=== PATIENT | female | born 1985 | race African-American/Black ===

== ENCOUNTER 2019-11-14 11:34 | Emergency (ER) | payer MEDICAID, OTHER ==
[~2019-11-14] VITALS: Ht 157.5 cm; Wt 76.9 kg
[~2019-11-14 11:34] MED LIST: ALBU2.5V14 NEB; ALBU2.5V8 IH; CYCL5TAB PO; FLUT1DIS3 IH; HYDR-3165 PO; IBUP800T19 PO
[2019-11-14 11:50] VITALS: BP 119/76
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
== END 2019-11-14 12:10 | disposition home or self-care (01) ==
LOC: ER 11:34
DX: T23.501A Corrosion of first degree of right hand, unspecified site, initial encounter (principal); R60.0 Localized edema; R21 Rash and other nonspecific skin eruption; M79.7 Fibromyalgia; F12.90 Cannabis use, unspecified, uncomplicated; Z98.890 Other specified postprocedural states; T65.891A Toxic effect of other specified substances, accidental (unintentional), initial encounter; Y92.89 Other specified places as the place of occurrence of the external cause
CPT/HCPCS: 99281

== ENCOUNTER 2020-07-15 18:39 | Emergency (ER) | payer MEDICAID ==
[~2020-07-15] VITALS: Ht 157.5 cm; Wt 85.2 kg
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
[2020-07-15] MEDS ORDERED: CYCLOBENZAPRINE 10 MG TABLET. PO ONE (20:00)
[2020-07-15] MEDS ORDERED: KETOROLAC 60 MG/2 ML VIAL. IM ONE (20:00)
[2020-07-15 20:29] VITALS: BP 131/68
[2020-07-15] MEDS ORDERED: CYCL-331 PO (20:57)
== END 2020-07-15 21:04 | disposition home or self-care (01) ==
LOC: ER 18:39
DX: M54.6 Pain in thoracic spine (principal); M54.2 Cervicalgia; M79.7 Fibromyalgia; Z88.0 Allergy status to penicillin
CPT/HCPCS: 81025; 96372; 99283; J1885

== ENCOUNTER → 2020-08-12 | Emergency (ER) | payer MEDICAID ==
[~2020-08-12] VITALS: Ht 157.5 cm; Wt 85.2 kg
[~2020-08-12] MED LIST changes: +ACETAMINOPHEN 325 MG TABLET PO ONE; +CYCL-331 PO; +ONDANSETRON ODT 4 MG TAB.RAPDIS ONE; +ONDANSETRON ODT 4 MG TAB.RAPDIS PO ONE
[2020-08-12 09:41] LABS: BASO % 0 % (0-3); EOS # 0.1 x10^3/uL (0.0-0.7); EOS % 2 % (0-3); HEMATOCRIT 38.7 % (36.0-47.0); HEMOGLOBIN 12.7 g/dL (12.0-15.5); LYMPH # 1.6 x10^3/uL (1.0-4.8); LYMPH % 25 % (24-48); MEAN CORPUSCULAR HEMOGLOBIN 31 pg (25-35); MEAN CORPUSCULAR HGB CONC 33 g/dL (31-37); MEAN CORPUSCULAR VOLUME 95 fL (79-100); MONO # 0.5 x10^3/uL (0.0-1.1); MONO % 8 % (0-9); NEUT # 4.3 x10^3uL (1.8-7.7); NEUT % 65 % (31-73); PLATELET COUNT 167 x10^3/uL (140-400); RED BLOOD COUNT 4.07 x10^6/uL (3.50-5.40); WHITE BLOOD COUNT 6.6 x10^3/uL (4.0-11.0)
[2020-08-12 09:47] LABS: CALCIUM 8.5 mg/dL (8.5-10.1); CREATININE 0.8 mg/dL (0.6-1.0); POTASSIUM 3.9 mmol/L (3.5-5.1)
--- NOTE | 2020-08-12 09:49 | RAD ---
PQRS Compliance Statement: One or more of the following individualized dose reduction techniques were utilized for this examinat ion: 1. Automated exposure control 2. Adjustment of the mA and/or kV according to patient size 3. Use of iterative reconstruction technique CT head and cervical spine without contrast 08/12/2020 9:16 AM INDICATION: Wheezing, seizure COMPARISON: None available TECHNIQUE: Multiple axial CT images of the head were obtained from skull base through the vertex with out intravenous contrast. Multiple axial CT images of the cervical spine were obtained without intrav enous contrast. Coronal and sagittal reformats are provided. FINDINGS: Head: Ventricles, sulci and basal cisterns are within normal limits. There is no hydrocephalus. Gallego-white matter differentiation is normal. There is no acute intracranial hemorrhage. There is no mass, mass e ffect or midline shift. Posterior fossa is normal in appearance. Visualized portions of the orbits are normal. Paranasal sinuses are well aerated. Mastoid air cells a re well aerated. Scalp and calvaria are normal. Cervical spine: Alignment of the cervical spine is normal. Skull base is intact. Craniocervical junction is normal in appearance. Atlantoaxial articulation is normal. Vertebral body heights are maintained without evidence for acute fracture. Facet joints are within normal limits. No significant osseous neural foraminal stenosis. No significa nt osseous spinal canal stenosis. Transverse foramen are intact. There is no prevertebral soft tissue swelling. Thyroid gland is normal in appearance. Visualized port ions of the lung apices are normal without evidence for suspicious pulmonary nodule or infiltrate. IMPRESSION: 1. No acute intracranial hemorrhage. 2. No acute fracture or malalignment of the cervical spine. Electronically signed by: Amy Go MD (08/12/2020 9:47 AM) [id number]
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
--- NOTE | 2020-08-12 09:53 | RAD ---
XR KNEE _3 VIEWS_LT, XR LT TIBIA + FIBULA Clinical Indication: Reason: left knee pain Comparison: None. Findings: There is no acute fracture or dislocation. The tricompartmental joint spaces are maintained. The briscoe lla is in anatomic position. There is no soft tissue abnormality. There is no joint effusion. No acute fracture of the tibia or fibula. No obvious abnormality of the ankle joint. IMPRESSION: No acute fracture of the knee or tibia/fibula. Electronically signed by: Roge Guzman MD (08/12/2020 9:51 AM) [id number]
[2020-08-12 09:58] LABS: ALBUMIN 3.3 g/dL (3.4-5.0); ALBUMIN/GLOBULIN RATIO 0.8 (1.0-1.7); TOTAL BILIRUBIN 0.3 mg/dL (0.2-1.0); TOTAL PROTEIN 7.3 g/dL (6.4-8.2)
[2020-08-12 12:12] LABS: BILIRUBIN,URINE NEG (NEG); CLARITY,URINE HAZY; COLOR,URINE YELLOW; GLUCOSE,URINE NEG (NEG)
[2020-08-12 12:13] LABS: BACTERIA,URINE 0 /HPF (0-FEW); NITRITE,URINE NEG (NEG); SQUAMOUS EPITHELIAL CELL,UR MANY /LPF; UROBILINOGEN,URINE 0.2 mg/dL (0.2 mg/dL)
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
[2020-08-12 12:50] VITALS: BP 116/88
== END ==
LOC: ER 08:23
DX: R56.9 Unspecified convulsions (principal); R07.89 Other chest pain; M25.562 Pain in left knee; M79.7 Fibromyalgia; Z88.0 Allergy status to penicillin; V89.2XXA Person injured in unspecified motor-vehicle accident, traffic, initial encounter; Y93.89 Activity, other specified; Y92.488 Other paved roadways as the place of occurrence of the external cause; Y99.8 Other external cause status
CPT/HCPCS: 36415; 70450; 71045; 72125; 73562; 73590; 80053; 81001; 83690; 84484; 85025; 99285; G0480; Q0162

== ENCOUNTER 2020-09-10 12:35 | Emergency (ER) | payer OTHER, MEDICAID ==
[~2020-09-10] VITALS: Ht 157.5 cm; Wt 85.2 kg
[~2020-09-10 12:35] MED LIST changes: -ACETAMINOPHEN 325 MG TABLET PO ONE; -ONDANSETRON ODT 4 MG TAB.RAPDIS ONE; -ONDANSETRON ODT 4 MG TAB.RAPDIS PO ONE
[2020-09-10 13:17] LABS: BASO % 1 % (0-3); EOS # 0.1 x10^3/uL (0.0-0.7); EOS % 1 % (0-3); HEMATOCRIT 40.5 % (36.0-47.0); HEMOGLOBIN 13.2 g/dL (12.0-15.5); LYMPH # 2.6 x10^3/uL (1.0-4.8); LYMPH % 35 % (24-48); MEAN CORPUSCULAR HEMOGLOBIN 31 pg (25-35); MEAN CORPUSCULAR HGB CONC 33 g/dL (31-37); MEAN CORPUSCULAR VOLUME 96 fL (79-100); MONO # 0.4 x10^3/uL (0.0-1.1); MONO % 6 % (0-9); NEUT # 4.2 x10^3uL (1.8-7.7); NEUT % 57 % (31-73); PLATELET COUNT 200 x10^3/uL (140-400); RED BLOOD COUNT 4.23 x10^6/uL (3.50-5.40); RED CELL DISTRIBUTION WIDTH 13.4 % (11.5-14.5); WHITE BLOOD COUNT 7.3 x10^3/uL (4.0-11.0)
[2020-09-10 13:23] LABS: CALCIUM 9.1 mg/dL (8.5-10.1); CREATININE 0.9 mg/dL (0.6-1.0); GFR 87.3; POTASSIUM 3.6 mmol/L (3.5-5.1)
[2020-09-10 13:29] LABS: MAGNESIUM 2.1 mg/dL (1.8-2.4); TOTAL BILIRUBIN 0.5 mg/dL (0.2-1.0); TOTAL PROTEIN 8.2 g/dL (6.4-8.2)
--- NOTE | 2020-09-10 13:52 | EKG ---
[address] [address] Test Date: 2020-09-10 Test Time: 12:46:48 Pat Name: ANUSHA LYLES Department: Room: Gender: F Dining Room Coordinator: MARIA ESTHER : 1985 Requested By: DAMI MORALES Order Number: [id number] Reading MD: Measurements Intervals [place] Rate: 63 P: 49 MA: 170 QRS: 13 QRSD: 68 T: 12 QT: 386 QTc: 398 Interpretive Statements SINUS RHYTHM NORMAL ECG RI6.02 No previous ECG available for comparison
[2020-09-10] MEDS ORDERED: ACETAMINOPHEN 500 MG TABLET PO ONE (14:15)
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
[2020-09-10 15:24] VITALS: BP 132/87
== END 2020-09-10 15:24 | disposition home or self-care (01) ==
LOC: ER 12:35
DX: G40.909 Epilepsy, unspecified, not intractable, without status epilepticus (principal); R41.0 Disorientation, unspecified; M79.7 Fibromyalgia; F12.90 Cannabis use, unspecified, uncomplicated; Z98.890 Other specified postprocedural states; Z88.0 Allergy status to penicillin
CPT/HCPCS: 36415; 80053; 83735; 84484; 85025; 85379; 93005; 99284; G0480

== ENCOUNTER 2020-11-27 16:25 | Emergency (ER) | payer MEDICAID, OTHER ==
[~2020-11-27] VITALS: Ht 157.5 cm; Wt 85.2 kg
--- NOTE | 2020-11-27 17:36 | EKG ---
[address] [address] Test Date: 2020-11-27 Test Time: 16:36:41 Pat Name: ANUSHA LYLES Department: Room: Gender: F Ben Day Artist: MARIA ESTHER : 1985 Requested By: DAMI MORALES Order Number: [id number] Reading MD: Measurements Intervals [place] Rate: 66 P: 29 PA: 160 QRS: 4 QRSD: 70 T: 8 QT: 372 QTc: 392 Interpretive Statements SINUS RHYTHM OTHERWISE NORMAL ECG RI6.02 No previous ECG available for comparison
[2020-11-27] MEDS ORDERED: IV NORMAL SALINE 1,000ML 1,000 ML IV ONE (17:45)
[2020-11-27] MEDS ORDERED: KETOROLAC 15 MG/ML VIAL. IVP ONE (17:45)
--- NOTE | 2020-11-27 17:46 | PHYS DOC ---
Past History Past Medical History: Fibromyalgia, Seizure Additional Past Medical Histor: severe seasonal allergies (DAMI MORALES MD) Past Surgical History: Other Additional Past Surgical Histo: ACL reapair one year ago (DAMI MORALES MD) Smoking: Non-smoker Alcohol Use: None Drug Use: Marijuana (DAMI MORALES MD) General Adult EDM: Chief Complaint: MULTIPLE COMPLAINTS HPI: HPI: Patient is a 34-year-old female coming in chest correction of her doctor for floaters. Patient states that she last had a seizure yesterday. This morning when she woke up she had floaters in her right eye now complaining of floaters in both eyes that come and go. Patient states that she sometimes has blurred vision and double vision that is horizontal. Has had a right-sided headache that is pressure-like for the past 2 to 3 weeks. Patient states she has been having seizures to 3 times per week. Denies any fevers but states she has had night sweats and occasional chills. Also complaining of a tremor since the seizure yesterday. Patient is being followed by DYLAN Martinez and is taking Zonisamide. Patient seizure disorder developed in the last year. States she has a history of lupus and multiple comorbidities. Denies any history of traumatic brain injury. Had MRI done about 1 month ago and any EEG that were inconclusive for any foci or epilepsy. (DAMI MORALES MD) Review of Systems: Review of Systems: All other systems within normal limits except for as noted in the HPI (DAMI MORALES MD) Allergies: Allergies: Allergies Coded Allergies Type Severity Reaction Last Updated Verified Penicillins Allergy Unknown 08/12/20 Yes (DAMI MORALES MD) Physical Exam: PE: Constitutional: Well developed, well nourished, no acute distress, non-toxic appearance. [] HENT: Normocephalic, atraumatic, bilateral external ears normal, nose normal. [Mild temporal tenderness] Eyes: PERRLA, extraocular was intact, pupils 3 mm reactive conjunctiva normal, no discharge. [] Neck: No rigidity, supple, no stridor. [] Cardiovascular: Regular rate and rhythm, brisk cap refill [] Lungs & Thorax: Non labored symmetric respirations, no tachypnea or respiratory distress [] Abdomen: Soft, nondistended. Skin: Warm, dry, no erythema, no rash. [] Back: Unremarkable Extremities: No deformities, range of motion grossly intact, no lower extremity edema [] Neurologic: Alert and oriented X 3, no focal deficits noted. Cranial nerves intact [] Psychologic: Affect normal, judgement normal, mood normal. [] (DAMI MORALES MD) Current Patient Data: Vital Signs: Vital Signs Date Time Temp Pulse Resp B/P (MAP) Pulse Ox O2 Delivery O2 Flow Rate FiO2 11/27/20 16:25 98.3 59 14 123/59 (80) 100 Room Air (DAMI MORALES MD) EKG: EKG: Sinus rhythm, heart rate 66/min, normal axis, no ST elevation depression, no ectopy. T wave inversions in lead III unchanged from comparison EKG dated 09-10-20 [] (DAMI MORALES MD) Radiology/Procedures: Radiology/Procedures: [] (DAMI MORALES MD) Impressions: EXAMINATION: CT HEAD/BRAIN WO (CT HEAD WITHOUT IV CONTRAST) CLINICAL HISTORY: Seizure, right headache, floaters TECHNIQUE: Serial axial images without IV contrast were obtained from the vertex to the foramen magnum. CT Dose Reduction Employed: One or more of the following individualized dose reduction techniques were utilized for this examination: 1. Automated exposure control 2. Adjustment of the mA and/or kV according to patient size 3. Use of iterative reconstruction technique. COMPARISON: 08/12/2020 FINDINGS: Acute Change: No evidence of an acute infarct or other acute parenchymal process. Hemorrhage: No evidence of acute intracranial hemorrhage. Mass Lesion/Mass Effect: No evidence of intracranial mass or extraaxial fluid collection. No significant mass effect. Chronic Change: None apparent. Parenchyma: No significant volume loss. Parenchyma otherwise within normal limits for age. Ventricles: Ventricles within normal limits for age. Paranasal Sinuses and Skull Base: Visualized paranasal sinuses clear. Visualized skull base and soft tissues unremarkable. Orbits and globes unremarkable. IMPRESSION: No evidence of acute intracranial abnormality or significant interval change. Electronically signed by: Esteban Espinosa DO (11/27/2020 6:05 PM) [facility] DICTATED AND SIGNED BY: ESTEBAN ESPINOSA DO DATE: 11/27/201801 CC: DAMI MORALES MD; KAROLINA MONIQUE PAC ~MTH0 0 (AILYN DIAL DO) Heart Score: C/O Chest Pain: No Risk Factors: Risk Factors: DM, Current or recent (<one month) smoker, HTN, HLP, family history of CAD, obesity. Risk Scores: Score 0 - 3: 2.5% MACE over next 6 weeks - Discharge Home Score 4 - 6: 20.3% MACE over next 6 weeks - Admit for Clinical Observation Score 7 - 10: 72.7% MACE over next 6 weeks - Early Invasive Strategies (DAMI MORALES MD) Course & Med Decision Making: Course & Med Decision Making Pertinent Labs and Imaging studies reviewed. (See chart for details) Pending imaging and labs at shift change, care transitioned at shift change. Pending headache medications. [] (DAMI MORALES MD) Course & Med Decision Making The patient's labs are unremarkable. Her urinalysis has leukocyte esterase but few bacteria. I do not believe this is UTI. Her head CT is negative for acute findings. I spoke with the patient about of her results. She is greatly reassured. She is comfortable with discharge. She is stable for discharge at this time. (AILYN DIAL DO) Dragon Disclaimer: Dragon Disclaimer: This electronic medical record was generated, in whole or in part, using a voice recognition dictation system. (DAMI MORALES MD) Departure Departure: Impression: Primary Impression: Floaters in visual field Additional Impression: History of seizure disorder Disposition: HOME / SELF CARE / HOMELESS Condition: STABLE Referrals: KAROLINA MONIQUE PAC (PCP) Patient Instructions: Eye - Floaters DAMI MORALES MD November 27, 2020 17:46 AILYN DIAL DO November 27, 2020 19:10
[2020-11-27 17:51] LABS: BASO % 0 % (0-3); EOS # 0.1 x10^3/uL (0.0-0.7); EOS % 2 % (0-3); HEMATOCRIT 37.4 % (36.0-47.0); HEMOGLOBIN 12.3 g/dL (12.0-15.5); LYMPH # 2.9 x10^3/uL (1.0-4.8); LYMPH % 39 % (24-48); MEAN CORPUSCULAR HEMOGLOBIN 32 pg (25-35); MEAN CORPUSCULAR HGB CONC 33 g/dL (31-37); MEAN CORPUSCULAR VOLUME 96 fL (79-100); MONO # 0.4 x10^3/uL (0.0-1.1); MONO % 6 % (0-9); NEUT % 53 % (31-73); PLATELET COUNT 160 x10^3/uL (140-400); RED BLOOD COUNT 3.92 x10^6/uL (3.50-5.40); RED CELL DISTRIBUTION WIDTH 13.2 % (11.5-14.5); WHITE BLOOD COUNT 7.4 x10^3/uL (4.0-11.0)
[2020-11-27 17:56] LABS: ANION GAP 9 (6-14); BLOOD UREA NITROGEN 7 mg/dL (7-20); BUN/CREATININE RATIO 9 (6-20); CALCIUM 9.1 mg/dL (8.5-10.1); CARBON DIOXIDE 26 mmol/L (21-32); CHLORIDE 106 mmol/L (98-107); CREATININE 0.8 mg/dL (0.6-1.0); GLUCOSE 92 mg/dL (70-99); POTASSIUM 4.1 mmol/L (3.5-5.1); SODIUM 141 mmol/L (136-145)
[2020-11-27 18:02] LABS: ALBUMIN 3.7 g/dL (3.4-5.0); ALBUMIN/GLOBULIN RATIO 1.1 (1.0-1.7); ALK PHOS 59 U/L (46-116); ALT (SGPT) 16 U/L (14-59); AST (SGOT) 12 U/L (15-37); MAGNESIUM 1.8 mg/dL (1.8-2.4); PHOSPHORUS 3.4 mg/dL (2.6-4.7); TOTAL BILIRUBIN 0.3 mg/dL (0.2-1.0); TOTAL PROTEIN 7.2 g/dL (6.4-8.2)
[2020-11-27 18:04] LABS: C REACTIVE PROTEIN < 0.5 mg/L (0-3.3)
--- NOTE | 2020-11-27 18:07 | RAD ---
EXAMINATION: CT HEAD/BRAIN WO (CT HEAD WITHOUT IV CONTRAST) CLINICAL HISTORY: Seizure, right headache, floaters TECHNIQUE: Serial axial images without IV contrast were obtained from the vertex to the foramen magnu m. CT Dose Reduction Employed: One or more of the following individualized dose reduction techniques wer e utilized for this examination: 1. Automated exposure control 2. Adjustment of the mA and/or kV ac cording to patient size 3. Use of iterative reconstruction technique. COMPARISON: 08/12/2020 FINDINGS: Acute Change: No evidence of an acute infarct or other acute parenchymal process. Hemorrhage: No evidence of acute intracranial hemorrhage. Mass Lesion/Mass Effect: No evidence of intracranial mass or extraaxial fluid collection. No signific ant mass effect. Chronic Change: None apparent. Parenchyma: No significant volume loss. Parenchyma otherwise within normal limits for age. Ventricles: Ventricles within normal limits for age. Paranasal Sinuses and Skull Base: Visualized paranasal sinuses clear. Visualized skull base and soft tissues unremarkable. Orbits and globes unremarkable. IMPRESSION: No evidence of acute intracranial abnormality or significant interval change. Electronically signed by: Esteban Gao DO (11/27/2020 6:05 PM) [facility]
[2020-11-27 18:39] LABS: BACTERIA,URINE FEW /HPF (0-FEW); BILIRUBIN,URINE NEG (NEG); CLARITY,URINE HAZY; COLOR,URINE YELLOW; GLUCOSE,URINE NEG (NEG); NITRITE,URINE NEG (NEG); UROBILINOGEN,URINE 0.2 mg/dL (0.2 mg/dL); WBC,URINE OCC /HPF (0-4)
[2020-11-27 18:40] LABS: SQUAMOUS EPITHELIAL CELL,UR MOD /LPF
[2020-11-27 19:32] VITALS: BP 113/80
== END 2020-11-27 19:45 | disposition home or self-care (01) ==
LOC: ER 16:25
DX: G40.909 Epilepsy, unspecified, not intractable, without status epilepticus (principal); H43.391 Other vitreous opacities, right eye; F12.10 Cannabis abuse, uncomplicated; Z88.0 Allergy status to penicillin
CPT/HCPCS: 36415; 70450; 80053; 81001; 82550; 83605; 83735; 83874; 84100; 85025; 86140; 87086; 93005; 96361; 96374; 99285; J1885; J7030

== ENCOUNTER 2021-02-09 13:51 | Emergency (ER) | payer MEDICAID ==
[~2021-02-09] VITALS: Ht 157.5 cm; Wt 82.0 kg
[2021-02-09 14:56] LABS: BASO % 0 % (0-3); EOS % 0 % (0-3); HEMATOCRIT 35.8 % (36.0-47.0); HEMOGLOBIN 11.9 g/dL (12.0-15.5); LYMPH % 9 % (24-48); MEAN CORPUSCULAR HEMOGLOBIN 31 pg (25-35); MEAN CORPUSCULAR HGB CONC 33 g/dL (31-37); MEAN CORPUSCULAR VOLUME 95 fL (79-100); MONO # 0.8 x10^3/uL (0.0-1.1); MONO % 7 % (0-9); NEUT # 9.5 x10^3uL (1.8-7.7); NEUT % 85 % (31-73); PLATELET COUNT 161 x10^3/uL (140-400); RED BLOOD COUNT 3.78 x10^6/uL (3.50-5.40); RED CELL DISTRIBUTION WIDTH 12.5 % (11.5-14.5); WHITE BLOOD COUNT 11.2 x10^3/uL (4.0-11.0)
[2021-02-09 14:59] LABS: CALCIUM 8.5 mg/dL (8.5-10.1); CREATININE 0.8 mg/dL (0.6-1.0); GFR 99.4
--- NOTE | 2021-02-09 14:59 | EKG ---
[address] [address] Test Date: 2021-02-09 Test Time: 14:51:21 Pat Name: ANUSHA LYLES Department: Room: Gender: F Patient Observation Assistant: : 1985 Requested By: DAMI MORALES Order Number: [id number] Reading MD: Measurements Intervals [place] Rate: 63 P: 27 VA: 140 QRS: 10 QRSD: 60 T: 11 QT: 380 QTc: 392 Interpretive Statements SINUS RHYTHM R-S TRANSITION ZONE IN V LEADS DISPLACED TO THE RIGHT OTHERWISE NORMAL ECG RI6.02 No previous ECG available for comparison
[2021-02-09 15:11] LABS: ALBUMIN 3.6 g/dL (3.4-5.0); ALBUMIN/GLOBULIN RATIO 0.9 (1.0-1.7); MAGNESIUM 2.1 mg/dL (1.8-2.4); TOTAL BILIRUBIN 0.5 mg/dL (0.2-1.0); TOTAL PROTEIN 7.4 g/dL (6.4-8.2)
[2021-02-09 15:44] LABS: PREG TEST PT QUAL NEGATIVE (NEG)
[2021-02-09] MEDS ORDERED: ONDANSETRON PF 4 MG/2 ML VIAL. ONE (15:45)
--- NOTE | 2021-02-09 16:05 | RAD ---
RS Compliance Statement: One or more of the following individualized dose reduction techniques were utilized for this examinat ion: 1. Automated exposure control 2. Adjustment of the mA and/or kV according to patient size 3. Use of iterative reconstruction technique CT head without contrast 02/09/2021 3:53 PM INDICATION: Seizures COMPARISON: 11/27/2020 TECHNIQUE: Multiple axial CT images of the head were obtained from skull base through the vertex with out intravenous contrast. FINDINGS: Head: Ventricles, sulci and basal cisterns are within normal limits. There is no hydrocephalus. Gallego-white matter differentiation is normal. There is no acute intracranial hemorrhage. There is no mass, mass e ffect or midline shift. Posterior fossa is normal in appearance. Visualized portions of the orbits are normal. Paranasal sinuses are well aerated. Mastoid air cells a re well aerated. Scalp and calvaria are normal. IMPRESSION: No acute intracranial hemorrhage. Electronically signed by: Amy Go MD (02/09/2021 4:02 PM) [facility]
[2021-02-09] MEDS ORDERED: SODIUM PHOSPHATE 20 MMOL in IV DEXTROSE 5% 250 ML IV ONE (17:15)
[2021-02-09] MEDS ORDERED: DEXTROSE 5% IV ONE (17:15)
[2021-02-09] MEDS ORDERED: POTASSIUM PHOSPHATE DIBASIC IV ONE (17:15)
--- NOTE | 2021-02-09 17:33 | PHYS DOC ---
Past History Past Medical History: Fibromyalgia, Seizure Additional Past Medical Histor: severe seasonal allergies , lupus Past Surgical History: Other Additional Past Surgical Histo: ACL reapair one year ago Smoking: Non-smoker Alcohol Use: None Drug Use: Marijuana General Adult EDM: Chief Complaint: SEIZURE HPI: HPI: Patient is a 35-year-old female coming in first for seizures today prior to arrival. Patient states her last seizure was about 3 days ago. Patient states she is bit her tongue during this events. Recorded 2 of her seizures. Patient states she was taken off of her Keppra in December, had an EEG done that did not show an epileptic foci. Patient states she is still been having occasional seizures but was better than her previous baseline. Denies any recent travel, sleep deprivation, new medications, or other identifying triggers. Patient has a history of lupus. She has had all of her work-up done at . Review of Systems: Review of Systems: All other systems within normal limits except for as noted in the HPI Current Medications: Current Meds: Current Medications Medications (Trade) Dose Ordered Sig/Josafat Start Time Stop Time Status Last Admin Dose Admin Lorazepam (Ativan Inj) 2 mg 1X ONCE 02/09/21 16:00 02/09/21 16:01 DC 02/09/21 15:55 2 MG Ondansetron HCl (Zofran) 4 mg STK-MED ONCE 02/09/21 15:45 02/09/21 15:46 DC Potassium Phosphate 20 mmol/ Dextrose 256.6667 ml @ 64.167 m... 1X ONCE 02/09/21 17:15 02/09/21 21:14 Sodium Phosphate 20 mmol/Dextrose 256.6667 ml @ 64.167 m... 1X ONCE 02/09/21 17:15 02/09/21 17:13 DC Allergies: Allergies: Allergies Coded Allergies Type Severity Reaction Last Updated Verified Penicillins Allergy Unknown 02/09/21 Yes Physical Exam: PE: Constitutional: Well developed, well nourished, no acute distress, non-toxic appearance. [] HENT: Normocephalic, atraumatic, bilateral external ears normal, nose normal. [] Eyes: PERRLA, conjunctiva normal, no discharge. [] Neck: No rigidity, supple, no stridor. [] Cardiovascular: Regular rate and rhythm, brisk cap refill [] Lungs & Thorax: Non labored symmetric respirations, no tachypnea or respiratory distress [] Abdomen: Soft, nondistended. Skin: Warm, dry, no erythema, no rash. [] Back: Unremarkable Extremities: No deformities, range of motion grossly intact, no lower extremity edema [] Neurologic: Alert and oriented X 3, no focal deficits noted. [] Psychologic: Affect normal, judgement normal, mood normal. [] Current Patient Data: Labs: Laboratory Tests Test 02/09/21 14:08 White Blood Count 11.2 x10^3/uL (4.0-11.0) H Red Blood Count 3.78 x10^6/uL (3.50-5.40) Hemoglobin 11.9 g/dL (12.0-15.5) L Hematocrit 35.8 % (36.0-47.0) L Mean Corpuscular Volume 95 fL (79-100) Mean Corpuscular Hemoglobin 31 pg (25-35) Mean Corpuscular Hemoglobin Concent 33 g/dL (31-37) Red Cell Distribution Width 12.5 % (11.5-14.5) Platelet Count 161 x10^3/uL (140-400) Neutrophils (%) (Auto) 85 % (31-73) H Lymphocytes (%) (Auto) 9 % (24-48) L Monocytes (%) (Auto) 7 % (0-9) Eosinophils (%) (Auto) 0 % (0-3) Basophils (%) (Auto) 0 % (0-3) Neutrophils # (Auto) 9.5 x10^3uL (1.8-7.7) H Lymphocytes # (Auto) 1.0 x10^3/uL (1.0-4.8) Monocytes # (Auto) 0.8 x10^3/uL (0.0-1.1) Eosinophils # (Auto) 0.0 x10^3/uL (0.0-0.7) Basophils # (Auto) 0.0 x10^3/uL (0.0-0.2) Sodium Level 137 mmol/L (136-145) Potassium Level 4.0 mmol/L (3.5-5.1) Chloride Level 105 mmol/L (98-107) Carbon Dioxide Level 23 mmol/L (21-32) Anion Gap 9 (6-14) Blood Urea Nitrogen 9 mg/dL (7-20) Creatinine 0.8 mg/dL (0.6-1.0) Estimated GFR (Cockcroft-Gault) 99.4 BUN/Creatinine Ratio 11 (6-20) Glucose Level 90 mg/dL (70-99) Calcium Level 8.5 mg/dL (8.5-10.1) Phosphorus Level 1.0 mg/dL (2.6-4.7) L Magnesium Level 2.1 mg/dL (1.8-2.4) Total Bilirubin 0.5 mg/dL (0.2-1.0) Aspartate Amino Transferase (AST) 15 U/L (15-37) Alanine Aminotransferase (ALT) 16 U/L (14-59) Alkaline Phosphatase 59 U/L (46-116) Creatine Kinase 97 U/L (26-192) Total Protein 7.4 g/dL (6.4-8.2) Albumin 3.6 g/dL (3.4-5.0) Albumin/Globulin Ratio 0.9 (1.0-1.7) L Serum Test, Qualitative Negative (NEG) Vital Signs: Vital Signs Date Time Temp Pulse Resp B/P (MAP) Pulse Ox O2 Delivery O2 Flow Rate FiO2 02/09/21 13:55 97.7 76 16 37/80 98 Room Air EKG: EKG: Sinus rhythm, heart rate 60 bpm, normal axis, no ST elevation or depression, normal intervals. [] Radiology/Procedures: Radiology/Procedures: [address] [id number] IMAGING REPORT Signed PATIENT: ANUSHA LYLES ACCOUNT: [id number] : 1985 LOCATION: ER AGE: 35 SEX: F EXAM STATUS: REG ER ORD. PHYSICIAN: DAMI MORALES MD REASON: seizures PROCEDURE: CT HEAD WO CONTRAST PQRS Compliance Statement: One or more of the following individualized dose reduction techniques were utilized for this examination: 1. Automated exposure control 2. Adjustment of the mA and/or kV according to patient size 3. Use of iterative reconstruction technique CT head without contrast 02/09/2021 3:53 PM INDICATION: Seizures COMPARISON: 11/27/2020 TECHNIQUE: Multiple axial CT images of the head were obtained from skull base through the vertex without intravenous contrast. FINDINGS: Head: Ventricles, sulci and basal cisterns are within normal limits. There is no hydrocephalus. Gallego-white matter differentiation is normal. There is no acute intracranial hemorrhage. There is no mass, mass effect or midline shift. Posterior fossa is normal in appearance. Visualized portions of the orbits are normal. Paranasal sinuses are well aerated. Mastoid air cells are well aerated. Scalp and calvaria are normal. IMPRESSION: No acute intracranial hemorrhage. Electronically signed by: Alejandrina Lyons MD (02/09/2021 4:02 PM) [facility] DICTATED AND SIGNED BY: ALEJANDRINA LYONS MD DATE: 02/09/211556 CC: DAMI MORALES MD; KAROLINA MONIQUE PAC ~MTH0 0 [] Heart Score: C/O Chest Pain: No Risk Factors: Risk Factors: DM, Current or recent (<one month) smoker, HTN, HLP, family history of CAD, obesity. Risk Scores: Score 0 - 3: 2.5% MACE over next 6 weeks - Discharge Home Score 4 - 6: 20.3% MACE over next 6 weeks - Admit for Clinical Observation Score 7 - 10: 72.7% MACE over next 6 weeks - Early Invasive Strategies Course & Med Decision Making: Course & Med Decision Making Patient had a witnessed seizure in the emergency department lasting a pproximately 45 to 60 seconds with a postictal period of 25 to 30 minutes. Back to baseline. Seizure was consistent with tonic-clonic seizure. No concerning signs for pseudoseizures. Severely hypophosphatemic. Consulted to [facility] regarding transfer for seizure management and electrolyte repletion. Patient accepted by Dr. Charanjit Howard Disclaimer: Anita Disclaimer: This electronic medical record was generated, in whole or in part, using a voice recognition dictation system. Departure Departure: Impression: Primary Impression: Seizure disorder Disposition: SHORT TERM HOSPITAL Condition: STABLE Referrals: KAROLINA MONIQUE PAC (PCP) DAMI MORALES MD Feb 09, 2021 17:33
[2021-02-09 19:19] VITALS: BP 116/66
[2021-02-09 19:55] LABS: BACTERIA,URINE MOD /HPF (0-FEW); BILIRUBIN,URINE NEG (NEG); CLARITY,URINE CLOUDY; COLOR,URINE YELLOW; GLUCOSE,URINE NEG (NEG); NITRITE,URINE NEG (NEG); UROBILINOGEN,URINE 0.2 mg/dL (0.2 mg/dL)
[2021-02-09 19:56] LABS: SQUAMOUS EPITHELIAL CELL,UR MANY /LPF
== END 2021-02-09 22:44 | disposition short-term general hospital (02) ==
LOC: ER 13:51
DX: G40.909 Epilepsy, unspecified, not intractable, without status epilepticus (principal); M79.7 Fibromyalgia; Z88.0 Allergy status to penicillin
CPT/HCPCS: 36415; 70450; 80053; 81001; 82550; 83735; 83874; 84100; 84703; 85025; 87086; 93005; 96365; 96366; 96375; 96376; 99285; J2060

== ENCOUNTER 2021-03-05 12:40 | Emergency (ER) | payer MEDICAID ==
[~2021-03-05] VITALS: Ht 157.5 cm; Wt 82.0 kg
[2021-03-05 13:40] LABS: BASO % 0 % (0-3); EOS # 0.1 x10^3/uL (0.0-0.7); EOS % 1 % (0-3); HEMATOCRIT 35.5 % (36.0-47.0); HEMOGLOBIN 11.7 g/dL (12.0-15.5); LYMPH # 2.1 x10^3/uL (1.0-4.8); LYMPH % 30 % (24-48); MEAN CORPUSCULAR HEMOGLOBIN 32 pg (25-35); MEAN CORPUSCULAR HGB CONC 33 g/dL (31-37); MEAN CORPUSCULAR VOLUME 96 fL (79-100); MONO # 0.4 x10^3/uL (0.0-1.1); MONO % 6 % (0-9); NEUT # 4.5 x10^3uL (1.8-7.7); NEUT % 63 % (31-73); PLATELET COUNT 189 x10^3/uL (140-400); RED BLOOD COUNT 3.68 x10^6/uL (3.50-5.40); RED CELL DISTRIBUTION WIDTH 13.1 % (11.5-14.5); WHITE BLOOD COUNT 7.1 x10^3/uL (4.0-11.0)
[2021-03-05 13:41] LABS: CALCIUM 8.6 mg/dL (8.5-10.1); GFR 76.8; POTASSIUM 3.8 mmol/L (3.5-5.1)
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
[2021-03-05 13:47] LABS: ALBUMIN 3.7 g/dL (3.4-5.0); TOTAL BILIRUBIN 0.6 mg/dL (0.2-1.0); TOTAL PROTEIN 7.4 g/dL (6.4-8.2)
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
[2021-03-05] MEDS ORDERED: IV NORMAL SALINE 1,000ML 1,000 ML IV ONE (14:30)
--- NOTE | 2021-03-05 15:07 | RAD ---
EXAM: XR CHEST 1V 03/05/2021 2:24 PM CLINICAL INDICATION: Suspect infiltrate COMPARISON: Chest radiograph 08/12/2020 TECHNIQUE: AP upright view of the chest FINDINGS: The heart and mediastinum are normal. Lungs are well-expanded and clear. No consolidatio n, pleural effusion, or pneumothorax. Pulmonary vascularity is normal. Bones are intact. IMPRESSION: No acute cardiopulmonary abnormality. Electronically signed by: Lilo Mitchell MD (03/05/2021 3:04 PM) [id number]
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
[2021-03-05 16:41] LABS: BILIRUBIN,URINE NEG (NEG); CLARITY,URINE CLOUDY; COLOR,URINE YELLOW; GLUCOSE,URINE NEG (NEG); NITRITE,URINE NEG (NEG); UROBILINOGEN,URINE 0.2 mg/dL (0.2 mg/dL)
[2021-03-05 16:44] LABS: BARBITURATES NEG (NEG); BENZODIAZEPINES NEG (NEG); CANNABINOIDS POS (NEG); COCAINE NEG (NEG); METHADONE NEG (NEG); OPIATES NEG (NEG); PHENCYCLIDINE NEG (NEG)
[2021-03-05 16:45] LABS: BACTERIA,URINE FEW /HPF (0-FEW); SQUAMOUS EPITHELIAL CELL,UR MANY /LPF
[2021-03-05 16:47] LABS: AMPHETAMINE/METHAMPHETAMINE NEG (NEG)
[2021-03-05 17:07] VITALS: BP 113/74
[2021-03-05] MEDS ORDERED: ONDANSETRON PF 4 MG/2 ML VIAL. ONE (17:42)
== END 2021-03-05 18:30 | disposition home or self-care (01) ==
LOC: ER 12:40
DX: R56.9 Unspecified convulsions (principal); F12.10 Cannabis abuse, uncomplicated; Z91.14 Patient's other noncompliance with medication regimen; Z88.0 Allergy status to penicillin
CPT/HCPCS: 36415; 70450; 71045; 72125; 80053; 80307; 81001; 83605; 85025; 87086; 93005; 96361; 96374; 99285; J2060; J7030

== ENCOUNTER 2021-04-08 09:05 | Emergency (ER) | payer MEDICAID ==
[~2021-04-08] VITALS: Ht 157.5 cm; Wt 82.0 kg
[2021-04-08] MEDS ORDERED: ONDANSETRON PF 4 MG/2 ML VIAL. ONE (09:14)
[2021-04-08] MEDS ORDERED: IV NORMAL SALINE 1,000ML 1,000 ML IV ONE ×2 (09:30→11:00)
[2021-04-08] MEDS ORDERED: FAMOTIDINE 20 MG/2 ML VIAL IVP ONE (09:30)
[2021-04-08] MEDS ORDERED: HALOPERIDOL LACT 5 MG/ML VIAL. IM ONE (09:45)
[2021-04-08] MEDS ORDERED: ONDANSETRON PF 4 MG/2 ML VIAL. IVP ONE (09:45)
[2021-04-08 10:00] VITALS: BP 108/45
[2021-04-08 10:37] LABS: BASO # 0.1 x10^3/uL (0.0-0.2); BASO % 0 % (0-3); CALCIUM 9.2 mg/dL (8.5-10.1); CREATININE 0.8 mg/dL (0.6-1.0); EOS % 0 % (0-3); GFR 99.4; HEMATOCRIT 37.5 % (36.0-47.0); HEMOGLOBIN 12.2 g/dL (12.0-15.5); LYMPH # 1.7 x10^3/uL (1.0-4.8); LYMPH % 10 % (24-48); MEAN CORPUSCULAR HEMOGLOBIN 31 pg (25-35); MEAN CORPUSCULAR HGB CONC 33 g/dL (31-37); MEAN CORPUSCULAR VOLUME 96 fL (79-100); MONO # 0.6 x10^3/uL (0.0-1.1); MONO % 4 % (0-9); NEUT # 14.5 x10^3uL (1.8-7.7); NEUT % 86 % (31-73); PLATELET COUNT 180 x10^3/uL (140-400); POTASSIUM 3.6 mmol/L (3.5-5.1); RED BLOOD COUNT 3.92 x10^6/uL (3.50-5.40); RED CELL DISTRIBUTION WIDTH 13.1 % (11.5-14.5); WHITE BLOOD COUNT 16.9 x10^3/uL (4.0-11.0)
[2021-04-08 10:41] LABS: AMPHETAMINE/METHAMPHETAMINE NEG (NEG); BARBITURATES NEG (NEG); BENZODIAZEPINES NEG (NEG); CANNABINOIDS POS (NEG); COCAINE NEG (NEG); METHADONE NEG (NEG); OPIATES NEG (NEG); PHENCYCLIDINE NEG (NEG)
[2021-04-08 10:45] LABS: ALBUMIN 3.9 g/dL (3.4-5.0); ALBUMIN/GLOBULIN RATIO 1.1 (1.0-1.7); MAGNESIUM 2.2 mg/dL (1.8-2.4); TOTAL BILIRUBIN 0.6 mg/dL (0.2-1.0); TOTAL PROTEIN 7.4 g/dL (6.4-8.2)
[2021-04-08 10:53] LABS: BACTERIA,URINE 0 /HPF (0-FEW); BILIRUBIN,URINE NEG (NEG); CLARITY,URINE HAZY; COLOR,URINE YELLOW; GLUCOSE,URINE NEG (NEG); NITRITE,URINE NEG (NEG); SQUAMOUS EPITHELIAL CELL,UR MOD /LPF; UROBILINOGEN,URINE 0.2 mg/dL (0.2 mg/dL)
[2021-04-08 10:54] LABS: HYALINE CASTS, URINE OCC /HPF
[2021-04-08] MEDS ORDERED: diphenhydrAMINE 50 MG/ML VIAL IVP ONE (11:00)
[2021-04-08] MEDS ORDERED: METOCLOPRAMIDE HCL 10 MG/2 ML VIAL. IVP ONE (11:00)
--- NOTE | 2021-04-08 11:47 | PHYS DOC ---
Past History Past Medical History: Fibromyalgia, Seizure Additional Past Medical Histor: severe seasonal allergies , lupus Past Surgical History: Other Additional Past Surgical Histo: ACL reapair one year ago Smoking: Non-smoker Alcohol Use: None Drug Use: Marijuana General Adult EDM: Chief Complaint: NAUSEA/VOMITING/DIARRHEA HPI: HPI: Patient is a [age] year old [sex] who presents with [] Review of Systems: Review of Systems: Constitutional: Denies fever or chills Eyes: Denies redness or eye pain HENT: Denies nasal congestion or sore throat Respiratory: Denies cough or shortness of breath Cardiovascular: Denies chest pain or palpitations GI: Denies abdominal pain, nausea, or vomiting : Denies dysuria or hematuria Musculoskeletal: Denies back pain or joint pain Integument: Denies rash or skin lesions Neurologic: Denies headache, focal weakness or sensory changes Complete systems were reviewed and found to be within normal limits, except as documented in this note. Current Medications: Current Meds: Current Medications Medications (Trade) Dose Ordered Sig/Josafat Start Time Stop Time Status Last Admin Dose Admin Diphenhydramine HCl (Benadryl) 50 mg 1X ONCE 04/08/21 11:00 04/08/21 11:21 DC 04/08/21 11:33 50 MG Famotidine (Pepcid Vial) 20 mg 1X ONCE 04/08/21 09:30 04/08/21 09:31 DC 04/08/21 09:52 20 MG Haloperidol Lactate (Haldol) 5 mg 1X ONCE 04/08/21 09:45 04/08/21 09:47 DC 04/08/21 09:53 5 MG Metoclopramide HCl (Reglan Vial) 10 mg 1X ONCE 04/08/21 11:00 04/08/21 11:21 DC 04/08/21 11:33 10 MG Ondansetron HCl (Zofran) 4 mg 1X ONCE 04/08/21 09:45 04/08/21 09:47 DC 04/08/21 09:54 4 MG Sodium Chloride 1,000 ml @ 1,000 mls/hr 1X ONCE 04/08/21 11:00 04/08/21 11:59 04/08/21 11:33 1,000 MLS/HR Allergies: Allergies: Allergies Coded Allergies Type Severity Reaction Last Updated Verified Penicillins Allergy Unknown 02/09/21 Yes Physical Exam: PE: Constitutional: Well developed, well nourished, no acute distress, non-toxic appearance. [] HENT: Normocephalic, atraumatic, bilateral external ears normal, oropharynx moist, no oral exudates, nose normal. [] Eyes: PERRLA, EOMI, conjunctiva normal, no discharge. [] Neck: Normal range of motion, no tenderness, supple, no stridor. [] Cardiovascular:Heart rate regular rhythm, no murmur [] Lungs & Thorax: Bilateral breath sounds clear to auscultation [] Abdomen: Bowel sounds normal, soft, no tenderness, no masses, no pulsatile masses. [] Skin: Warm, dry, no erythema, no rash. [] Back: No tenderness, no CVA tenderness. [] Extremities: No tenderness, no cyanosis, no clubbing, ROM intact, no edema. [] Neurologic: Alert and oriented X 3, normal motor function, normal sensory function, no focal deficits noted. [] Psychologic: Affect normal, judgement normal, mood normal. [] Current Patient Data: Labs: Laboratory Tests Test 04/08/21 09:50 04/08/21 10:11 White Blood Count 16.9 x10^3/uL (4.0-11.0) H Red Blood Count 3.92 x10^6/uL (3.50-5.40) Hemoglobin 12.2 g/dL (12.0-15.5) Hematocrit 37.5 % (36.0-47.0) Mean Corpuscular Volume 96 fL (79-100) Mean Corpuscular Hemoglobin 31 pg (25-35) Mean Corpuscular Hemoglobin Concent 33 g/dL (31-37) Red Cell Distribution Width 13.1 % (11.5-14.5) Platelet Count 180 x10^3/uL (140-400) Neutrophils (%) (Auto) 86 % (31-73) H Lymphocytes (%) (Auto) 10 % (24-48) L Monocytes (%) (Auto) 4 % (0-9) Eosinophils (%) (Auto) 0 % (0-3) Basophils (%) (Auto) 0 % (0-3) Neutrophils # (Auto) 14.5 x10^3uL (1.8-7.7) H Lymphocytes # (Auto) 1.7 x10^3/uL (1.0-4.8) Monocytes # (Auto) 0.6 x10^3/uL (0.0-1.1) Eosinophils # (Auto) 0.0 x10^3/uL (0.0-0.7) Basophils # (Auto) 0.1 x10^3/uL (0.0-0.2) Platelet Estimate Pending Urine Collection Type Unknown Urine Color Yellow Urine Clarity Hazy Urine pH 6.0 Urine Specific [place] 1.025 Urine Protein Neg (NEG-TRACE) Urine Glucose (UA) Neg mg/dL (NEG) Urine Ketones (Stick) 15 mg/dL (NEG) Urine Blood Mod (NEG) Urine Nitrite Neg (NEG) Urine Bilirubin Neg (NEG) Urine Urobilinogen Dipstick 0.2 mg/dL (0.2 mg/dL) Urine Leukocyte Esterase Neg (NEG) Urine RBC 1-2 /HPF (0-2) Urine WBC 1-4 /HPF (0-4) Urine Squamous Epithelial Cells Mod /LPF Urine Bacteria 0 /HPF (0-FEW) Urine Hyaline Casts Occ /HPF Urine Mucus Mod /LPF Sodium Level 139 mmol/L (136-145) Potassium Level 3.6 mmol/L (3.5-5.1) Chloride Level 104 mmol/L (98-107) Carbon Dioxide Level 21 mmol/L (21-32) Anion Gap 14 (6-14) Blood Urea Nitrogen 5 mg/dL (7-20) L Creatinine 0.8 mg/dL (0.6-1.0) Estimated GFR (Cockcroft-Gault) 99.4 BUN/Creatinine Ratio 6 (6-20) Glucose Level 138 mg/dL (70-99) H Calcium Level 9.2 mg/dL (8.5-10.1) Magnesium Level 2.2 mg/dL (1.8-2.4) Total Bilirubin 0.6 mg/dL (0.2-1.0) Aspartate Amino Transferase (AST) 16 U/L (15-37) Alanine Aminotransferase (ALT) 14 U/L (14-59) Alkaline Phosphatase 55 U/L (46-116) Creatine Kinase 98 U/L (26-192) Total Protein 7.4 g/dL (6.4-8.2) Albumin 3.9 g/dL (3.4-5.0) Albumin/Globulin Ratio 1.1 (1.0-1.7) Lipase 51 U/L (73-393) L Urine Opiates Screen Neg (NEG) Urine Methadone Screen Neg (NEG) Urine Barbiturates Neg (NEG) Urine Phencyclidine Screen Neg (NEG) Urine Amphetamine/Methamphetamine Neg (NEG) Urine Benzodiazepines Screen Neg (NEG) Urine Cocaine Screen Neg (NEG) Urine Cannabinoids Screen Pos (NEG) Urine Ethyl Alcohol Neg (NEG) POC Urine HCG, Qualitative hcg negative (Negative) Vital Signs: Vital Signs Date Time Temp Pulse Resp B/P (MAP) Pulse Ox O2 Delivery O2 Flow Rate FiO2 04/08/21 10:00 68 16 108/45 (66) 96 EKG: EKG: [] Radiology/Procedures: Radiology/Procedures: [] Heart Score: Risk Factors: Risk Factors: DM, Current or recent (<one month) smoker, HTN, HLP, family history of CAD, obesity. Risk Scores: Score 0 - 3: 2.5% MACE over next 6 weeks - Discharge Home Score 4 - 6: 20.3% MACE over next 6 weeks - Admit for Clinical Observation Score 7 - 10: 72.7% MACE over next 6 weeks - Early Invasive Strategies Course & Med Decision Making: Course & Med Decision Making Pertinent Labs and Imaging studies reviewed. (See chart for details) [] Anita Disclaimer: Anita Disclaimer: This electronic medical record was generated, in whole or in part, using a voice recognition dictation system. Departure Departure: Impression: Primary Impression: Intractable nausea and vomiting Additional Impressions: History of seizure Marijuana abuse Disposition: 01 HOME / SELF CARE / HOMELESS Condition: STABLE Referrals: KAROLINA MONIQUE PAC (PCP) Patient Instructions: Cyclic Vomiting Syndrome, Marijuana Abuse-Brief, Nausea and Vomiting, [id number], Seizure, Adult, [id number] Scripts Capsaicin (CAPSAICIN) 42.5 Gm Cream..g. 1 PAULA TP TID PRN for VOMITING, #42.5 GM 0 Refills Prov: VELIA GUTIERREZ DO 04/08/21 Promethazine Hcl (PROMETHAZINE HCL) 25 Mg Supp.rect 25 MG RC Q8HRS PRN for NAUSEA, #14 SUPP.RECT Prov: VELIA GUTIERREZ DO 04/08/21 Ondansetron (ONDANSETRON ODT) 4 Mg Tab.rapdis 1 TAB PO PRN Q6-8HRS PRN for NAUSEA, #16 TAB Prov: VELIA GUTIERREZ DO 04/08/21 VELIA GUTIERREZ DO Apr 08, 2021 11:47
[2021-04-08 12:20] LABS: % LYMPHS 25 % (24-48); % MONOS 3 % (0-10); % SEGS 72 % (35-66)
[2021-04-08 12:21] LABS: PLT ESTIMATE ADEQUATE (ADEQUATE)
[2021-04-08] MEDS ORDERED: ONDA4TAB12 PO (12:34)
[2021-04-08] MEDS ORDERED: CAPS42.514 TP (12:34)
[2021-04-08] MEDS ORDERED: PROM25SU33 RC (12:34)
== END 2021-04-08 12:41 | disposition home or self-care (01) ==
LOC: ER 09:05
DX: R11.2 Nausea with vomiting, unspecified (principal); R19.7 Diarrhea, unspecified; F12.10 Cannabis abuse, uncomplicated; M79.7 Fibromyalgia; Z88.0 Allergy status to penicillin
CPT/HCPCS: 36415; 80053; 80307; 81001; 81025; 82550; 83690; 83735; 85007; 85025; 96361; 96372; 96374; 96375; 99284; J1200; J1630; J2405; J2765; J3490; J7030